=== PATIENT | female | born 1930 | race Caucasian/White ===

== ENCOUNTER 2018-06-10 04:15 | Inpatient (IN) | payer MEDICARE, BC, MEDICAID ==
[2018-06-10 04:57] LABS: ADD MAN DIFF? NO; BASOPHILS % 0.4 % (0.0-2.0); EOSINOPHILS # 0.1 10^3/ul (0.0-0.5); EOSINOPHILS % 1.2 % (0.0-7.0); HEMATOCRIT 37.3 % (37.0-47.0); HEMOGLOBIN 13.3 g/dl (12.0-16.0); LYMPHOCYTES # 2.9 10^3/ul (0.8-2.9); LYMPHOCYTES % 26.2 % (15.0-51.0); MEAN CORPUSCULAR HEMOGLOBIN 31.8 pg (29.0-33.0); MEAN CORPUSCULAR HGB CONC 35.7 g/dl (32.0-37.0); MEAN CORPUSCULAR VOLUME 89.2 fl (82.0-101.0); MEAN PLATELET VOLUME 10.2 fl (7.4-10.4); MONOCYTE # 0.7 10^3/ul (0.3-0.9); MONOCYTES % 6.7 % (0.0-11.0); NEUTROPHIL # 7.1 10^3/ul (1.6-7.5); NEUTROPHILS % 64.9 % (39.0-77.0); PLATELET COUNT 258 10^3/UL (140-415); RED BLOOD COUNT 4.18 10^6/ul (4.20-5.40); RED CELL DISTRIBUTION WIDTH 11.8 % (11.5-14.5)
[2018-06-10 04:57] LABS: WHITE BLOOD COUNT 10.9 10^3/ul (4.8-10.8)
[2018-06-10] MEDS: SOD CHLORIDE 0.9% 500 ML IV (04:59)
[2018-06-10] MEDS: ONDANSETRON 4 MG INJ IV ×2 (05:00→07:20)
[2018-06-10] MEDS: morphine 4 MG/ML VIAL IV (05:00)
[2018-06-10 05:05] LABS: ALANINE AMINOTRANSFERASE 29 IU/L (13-69); ALBUMIN 4.1 g/dl (3.3-4.9); ALBUMIN/GLOBULIN RATIO 1.28; ALKALINE PHOSPHATASE 103 IU/L (42-121); ANION GAP 19 (8-16); ASPARTATE AMINO TRANSFERASE 34 IU/L (15-46); BILIRUBIN,INDIRECT 1.1 mg/dl (0-1.1); BILIRUBIN,TOTAL 1.1 mg/dl (0.2-1.3); BLOOD UREA NITROGEN 20 mg/dl (7-20); CALCIUM 8.7 mg/dl (8.4-10.2); CARBON DIOXIDE 26 mmol/L (21-31); CHLORIDE 79 mmol/L (97-110); CREATININE 0.39 mg/dl (0.44-1.00); GLUCOSE 184 mg/dl (70-220); LIPASE 184 U/L (23-300); POTASSIUM 3.2 mmol/L (3.5-5.1); SODIUM 121 mmol/L (135-144); TOTAL PROTEIN 7.3 g/dl (6.1-8.1)
[2018-06-10] MEDS ORDERED: POTASSIUM CHLORIDE 30 MEQ in SOD CHLORIDE 0.9% 1,000 ML IV (06:00)
[2018-06-10] MEDS ORDERED: ONDANSETRON 4 MG INJ IV (06:30)
[2018-06-10] MEDS ORDERED: morphine 2 MG INJ IV (06:30)
[2018-06-10] MEDS ORDERED: NACL 0.9% 3 ML SYG IV (06:30)
[2018-06-10 09:41] LABS: ANION GAP 12 (8-16); BLOOD UREA NITROGEN 15 mg/dl (7-20); CALCIUM 8.5 mg/dl (8.4-10.2); CARBON DIOXIDE 29 mmol/L (21-31); CHLORIDE 81 mmol/L (97-110); CREATININE 0.33 mg/dl (0.44-1.00); GLUCOSE 152 mg/dl (70-220); POTASSIUM 3.3 mmol/L (3.5-5.1)
[2018-06-10 09:48] LABS: SODIUM 119 mmol/L (135-144)
[2018-06-10] MEDS: hydrALAzine 20 MG INJ IV (10:42)
[2018-06-10] MEDS: POTASSIUM CHLORIDE (SR) 10 MEQ TAB PO (11:15)
[2018-06-10] MEDS ORDERED: BISACODYL (EC) 5 MG TAB PO (11:30)
[2018-06-10 12:12] LABS: URIC ACID 1.9 mg/dl (3.1-7.9)
[2018-06-10 12:19] LABS: SODIUM 119 mmol/L (135-144)
[2018-06-10 12:30] LABS: INR 0.88; PARTIAL THROMBOPLASTIN TIME 30.3 Sec (25.0-35.0); PT RATIO 0.9
[2018-06-10 13:20] LABS: CANCER ANTIGEN 125 6.1 U/ml (0.0-35.0)
[2018-06-10 13:23] LABS: ALPHA FETOPROTEIN 1.13 IU/L (0.00-7.21)
[2018-06-10 13:23] LABS: CANCER ANTIGEN 19-9 21.1 U/ml (0.0-37.0)
[2018-06-10] MEDS: METOPROLOL 25 MG TAB PO ×2 (13:37→21:14)
[2018-06-10] MEDS: ACETAMINOPHEN 325 MG TAB PO (13:37)
[2018-06-10] MEDS: ALBUTEROL/IPRATROPIUM (NEB) 3 ML AMP HHN ×2 (14:00→20:25)
[2018-06-10 14:10] LABS: ANION GAP 14 (8-16); BLOOD UREA NITROGEN 15 mg/dl (7-20); CALCIUM 8.6 mg/dl (8.4-10.2); CARBON DIOXIDE 27 mmol/L (21-31); CHLORIDE 80 mmol/L (97-110); CREATININE 0.33 mg/dl (0.44-1.00); GLUCOSE 182 mg/dl (70-220); POTASSIUM 3.2 mmol/L (3.5-5.1)
[2018-06-10 14:12] LABS: SODIUM 118 mmol/L (135-144)
[2018-06-10] MEDS ORDERED: POTASSIUM CHLORIDE (SR) 20 MEQ TAB PO (14:17)
[2018-06-10] MEDS ORDERED: morphine LIQ (10 MG/5 ML) CUP PO (15:00)
[2018-06-10] MEDS: NACL 3% 500 ML IV (17:06)
[2018-06-10 19:48] LABS: ANION GAP 15 (8-16); BLOOD UREA NITROGEN 13 mg/dl (7-20); CALCIUM 8.7 mg/dl (8.4-10.2); CARBON DIOXIDE 25 mmol/L (21-31); CHLORIDE 82 mmol/L (97-110); CREATININE 0.38 mg/dl (0.44-1.00); GLUCOSE 144 mg/dl (70-220); POTASSIUM 3.8 mmol/L (3.5-5.1)
[2018-06-10 20:02] LABS: SODIUM 118 mmol/L (135-144)
[2018-06-10] MEDS ORDERED: AMLODIPINE 2.5 MG TAB PO (21:00)
[2018-06-10] MEDS: DOCUSATE SODIUM 100 MG CAP PO (21:12)
[2018-06-10] MEDS: POLYETHYLENE GLYCOL 17 GM PACKET PO (21:16)
[2018-06-10 23:09] LABS: ADD UMIC NO; UR ASCORBIC ACID NEGATIVE (NEGATIVE); UR BILIRUBIN (Dip) NEGATIVE (NEGATIVE); UR BLOOD (Dip) NEGATIVE (NEGATIVE); UR CLARITY CLEAR (CLEAR); UR COLOR YELLOW (YELLOW); UR GLUCOSE (Dip) NEGATIVE (NEGATIVE); UR KETONES (Dip) NEGATIVE (NEGATIVE); UR LEUKOCYTE ESTERASE (Dip) NEGATIVE Leu/ul (NEGATIVE); UR NITRITE (Dip) NEGATIVE (NEGATIVE); UR SPECIFIC GRAVITY (Dip) 1.005 (1.003-1.030); UR TOTAL PROTEIN (Dip) NEGATIVE (NEGATIVE); UR UROBILINOGEN (Dip) NEGATIVE (NEGATIVE)
[2018-06-10 23:21] LABS: SODIUM,URINE RANDOM 14 mmol/L (30-90)
[2018-06-10 23:24] LABS: OSMOLALITY,URINE 209 mOsm/kg (250-1200)
[2018-06-11 02:03] LABS: ANION GAP 9 (8-16); BLOOD UREA NITROGEN 11 mg/dl (7-20); CALCIUM 8.6 mg/dl (8.4-10.2); CARBON DIOXIDE 28 mmol/L (21-31); CHLORIDE 91 mmol/L (97-110); CREATININE 0.39 mg/dl (0.44-1.00); GLUCOSE 121 mg/dl (70-220); POTASSIUM 3.5 mmol/L (3.5-5.1); SODIUM 124 mmol/L (135-144)
[2018-06-11] MEDS ORDERED: IOHEXOL 14.3 MG(I)/ML (ADULT) BTL PO (08:00)
[2018-06-11] MEDS: ALBUTEROL/IPRATROPIUM (NEB) 3 ML AMP HHN ×2 (08:00→14:38)
[2018-06-11] MEDS: POLYETHYLENE GLYCOL 17 GM PACKET PO (09:25)
[2018-06-11] MEDS: METOPROLOL 25 MG TAB PO (09:25)
[2018-06-11] MEDS: DOCUSATE SODIUM 100 MG CAP PO (09:25)
[2018-06-11 09:26] LABS: ADD MAN DIFF? NO
[2018-06-11] MEDS ORDERED: SOD CHLORIDE 0.9% 1,000 ML IV (09:30)
[2018-06-11 09:37] LABS: BASOPHILS % 0.2 % (0.0-2.0); EOSINOPHILS # 0.1 10^3/ul (0.0-0.5); EOSINOPHILS % 0.8 % (0.0-7.0); HEMATOCRIT 38.8 % (37.0-47.0); HEMOGLOBIN 13.5 g/dl (12.0-16.0); LYMPHOCYTES # 0.8 10^3/ul (0.8-2.9); LYMPHOCYTES % 9.5 % (15.0-51.0); MEAN CORPUSCULAR HEMOGLOBIN 32.4 pg (29.0-33.0); MEAN CORPUSCULAR HGB CONC 34.8 g/dl (32.0-37.0); MONOCYTE # 0.6 10^3/ul (0.3-0.9); MONOCYTES % 6.7 % (0.0-11.0); NEUTROPHIL # 6.8 10^3/ul (1.6-7.5); NEUTROPHILS % 82.2 % (39.0-77.0); PLATELET COUNT 257 10^3/UL (140-415); RED BLOOD COUNT 4.17 10^6/ul (4.20-5.40); RED CELL DISTRIBUTION WIDTH 12.3 % (11.5-14.5)
[2018-06-11 09:37] LABS: WHITE BLOOD COUNT 8.3 10^3/ul (4.8-10.8)
[2018-06-11 09:53] LABS: HEMOGLOBIN A1C 6.8 % (0-5.9)
[2018-06-11 10:04] LABS: ALANINE AMINOTRANSFERASE 28 IU/L (13-69); ALBUMIN 3.8 g/dl (3.3-4.9); ALBUMIN/GLOBULIN RATIO 1.18; ALKALINE PHOSPHATASE 74 IU/L (42-121); ANION GAP 14 (8-16); ASPARTATE AMINO TRANSFERASE 37 IU/L (15-46); BILIRUBIN,INDIRECT 1.6 mg/dl (0-1.1); BILIRUBIN,TOTAL 1.6 mg/dl (0.2-1.3); BLOOD UREA NITROGEN 11 mg/dl (7-20); CALCIUM 8.6 mg/dl (8.4-10.2); CARBON DIOXIDE 25 mmol/L (21-31); CHLORIDE 93 mmol/L (97-110); CREATININE 0.42 mg/dl (0.44-1.00); GLUCOSE 146 mg/dl (70-220); POTASSIUM 3.4 mmol/L (3.5-5.1); SODIUM 129 mmol/L (135-144)
[2018-06-11 10:09] LABS: MAGNESIUM 1.8 mg/dl (1.7-2.5)
[2018-06-11 10:09] LABS: PHOSPHORUS 2.7 mg/dl (2.5-4.9)
[2018-06-11] MEDS: LORAZEPAM 0.5 MG TAB PO (10:51)
[2018-06-11] MEDS: IOHEXOL 14.3 MG(I)/ML (ADULT) BTL PO (12:19)
[2018-06-11] MEDS: ACETAMINOPHEN 325 MG TAB PO ×2 (13:26→18:49)
[2018-06-11] MEDS: POTASSIUM CHLORIDE (SR) 20 MEQ TAB PO (13:26)
[2018-06-11 15:14] LABS: ANION GAP 11 (8-16); BLOOD UREA NITROGEN 11 mg/dl (7-20); CALCIUM 8.4 mg/dl (8.4-10.2); CARBON DIOXIDE 27 mmol/L (21-31); CHLORIDE 93 mmol/L (97-110); CREATININE 0.42 mg/dl (0.44-1.00); GLUCOSE 120 mg/dl (70-220); POTASSIUM 3.5 mmol/L (3.5-5.1); SODIUM 127 mmol/L (135-144)
[2018-06-12 16:52] LABS: CREATININE, RANDOM URINE 26 mg/dL (20-320); MICROALBUMIN 0.3 mg/dL; MICROALBUMIN/CREATININE RATIO 12 (<30)
== END 2018-06-11 20:53 | disposition hospice, home (50) | DRG 392 ==
LOC: E/R 04:15 → MS2 05:40 → MS4 12:45
DX: R10.9 Unspecified abdominal pain (principal); E87.1 Hypo-osmolality and hyponatremia; I10 Essential (primary) hypertension; I48.91 Unspecified atrial fibrillation; J84.10 Pulmonary fibrosis, unspecified; E11.9 Type 2 diabetes mellitus without complications; E66.9 Obesity, unspecified; Z68.35 Body mass index [BMI] 35.0-35.9, adult; K59.00 Constipation, unspecified; F03.90 Unspecified dementia, unspecified severity, without behavioral disturbance, psychotic disturbance, mood disturbance, and anxiety; E87.6 Hypokalemia
CPT/HCPCS: 36415; 74018; 74176; 80048; 80053; 81003; 82043; 82105; 82378; 83036; 83690; 83735; 83935; 84100; 84155; 84295; 84300; 84443; 84560; 85025; 85610; 85730; 86301; 86304; 93005; 94640; 94664; 96374; 96375; 99285-25; G0378